=== PATIENT | female | born 1980 ===

== ENCOUNTER 2019-06-04 19:05 | Emergency (ER) | payer BC ==
[2019-06-04 20:25] LABS: ABS Lymphocytes 1.9 10^3/ul (1.0-4.8); ABS Monocytes 0.5 10^3/ul (0-0.8); ABS Neutrophils 4.8 10^3/ul (1.5-7.7); Eosinophil % 0.7 %; Hematocrit 36 % (35-47); Hemoglobin 12.1 g/dL (12.0-16.0); Lymphocyte % 26.4 %; Mean Corpuscular HGB Conc 33 g/dL (31-36); Mean Corpuscular Hemoglobin 29 pg (27-31); Mean Corpuscular Volume 86 fL (80-97); Mean Platelet Volume 7.5 fL (7.4-10.4); Nucleated Red Blood Cells % 0.1; Platelet Count 209 10^3/uL (150-450); Red Cell Distribution Width 14 % (10-15); White Blood Count 7.3 10^3/uL (3.5-10.8)
[2019-06-04 20:42] LABS: Albumin 4.4 g/dL (3.2-5.2); Albumin/Globulin Ratio 1.5 (1-3); Calcium 8.9 mg/dL (8.6-10.3); EGFR African American 105.2 (>60); Globulin 2.9 g/dL (2-4); Potassium 3.8 mmol/L (3.5-5.0); Total Bilirubin 0.3 mg/dL (0.2-1.0); Total Protein 7.3 g/dL (6.4-8.9)
[2019-06-04 22:39] VITALS: BP 100/60
--- NOTE | 2019-06-04 23:05 | ED ---
- HPI Summary HPI Summary: 38 year old F in 1st trimester of presenting to [facility] with a chief complaint of light vaginal bleeding onset today associated with stabbing umbilical pain. The bleeding is described as a spotting and hasn't worsened since onset. She additionally c/o fatigue. The pain is 3/10 in severity and intermittent. A0. PMHx: Sjgren's syndrome. - History of Current Complaint Chief Complaint: EDOBProblems Stated Complaint: POSS MISCARRIAGE PER PT Time Seen by Provider: 06/04/19 22:09 Hx Obtained From: Patient Chief Complaint: Concern for Demise, Vaginal Bleeding Onset/Duration: Started Hours Ago, Still Present Timing: Intermittent, Lasting Hours Severity: Mild Current Severity: Mild Pain Intensity: 3 Location of Pain: Other: - umbilical Character: Other: - stabbing Aggravating Factors: Nothing Alleviating Factors: Nothing Associated Signs and Symptoms: Positive: Vaginal Bleeding or Discharge, Other: - umbilical pain - Assessment Hx Now: Yes History of Ectopic : No Vaginal Bleeding Amount: Small - Allergies/Home Medications Allergies/Adverse Reactions: Allergies Allergy/AdvReac Type Severity Reaction Status Date / Time chicken derived Allergy Anaphylatic Verified 06/04/19 19:19 Shock mushroom Allergy Rash Verified 06/04/19 19:19 PMH/Surg Hx/FS Hx/Imm Hx Previously Healthy: Yes Endocrine/Hematology History: Reports: Other Endocrine/Hematological Disorders - Sjgren's syndrome Denies: Hx Diabetes Cardiovascular History: Denies: Hx Hypertension - Surgical History Surgical History: None Surgery Procedure, Year, and Place: none Infectious Disease History: No Infectious Disease History: Denies: Traveled Outside the [place] in Last 30 Days - Family History Known Family History: Negative: Hypertension, Diabetes - Social History Alcohol Use: None Hx Substance Use: No Substance Use Type: Reports: None Hx Tobacco Use: No Smoking Status (MU): Never Smoked Tobacco Review of Systems Positive: Other - fatigue Positive: Abdominal Pain - umbilical Positive: pain, other - vaginal spotting All Other Systems Reviewed And Are Negative: Yes Physical Exam - Summary Physical Exam Summary: Appearance: Well-appearing, Well-nourished, lying in bed comfortably Skin: Warm, dry, no obvious rash Eyes: sclera anicteric, no conjunctival pallor ENT: mucous membranes moist, pharynx appears normal Neck: Supple, nontender Respiratory: Clear to auscultation, no signs of respiratory distress Cardiovascular: Normal S1, S2. No murmurs. Normal distal pulses in tibial and radial bilaterally. Abdomen: Soft, nontender, normal active bowel sounds present. Bedside US confirms intrauterine . Musculoskeletal: Normal, Strength/ROM Intact Neurological: A&Ox3, awake and alert, mentation is normal, speech is fluent and appropriate Psychiatric: affect is normal, does not appear anxious or depressed - Physical Exam Triage Information Reviewed: Yes Vital Signs Reviewed: Yes Diagnostics - Vital Signs Vital Signs Temp Pulse Resp BP Pulse Ox 06/04/19 22:38 98.9 F 64 14 100/60 100 06/04/19 19:15 98.6 F 71 15 112/74 100 - Laboratory Lab Results: Lab Results 06/04/19 06/04/19 06/04/19 Range/Units 20:04 20:04 20:04 WBC 7.3 (3.5-10.8) 10^3/uL RBC 4.20 (3.70-4.87) 10^6 /uL Hgb 12.1 (12.0-16.0) g/dL Hct 36 (35-47) % MCV 86 (80-97) fL MCH 29 (27-31) pg MCHC 33 (31-36) g/dL RDW 14 (10-15) % Plt Count 209 (150-450) 10^3/uL MPV 7.5 (7.4-10.4) fL Neut % (Auto) 65.1 % Lymph % (Auto) 26.4 % [place] % (Auto) 7.3 % Eos % (Auto) 0.7 % Baso % (Auto) 0.5 % Absolute Neuts (auto) 4.8 (1.5-7.7) 10^3/ul Absolute Lymphs (auto) 1.9 (1.0-4.8) 10^3/ul Absolute Monos (auto) 0.5 (0-0.8) 10^3/ul Absolute Eos (auto) 0.0 (0-0.6) 10^3/ul Absolute Basos (auto) 0.0 (0-0.2) 10^3/ul Absolute Nucleated RBC 0.0 10^3/ul Nucleated RBC % 0.1 Sodium 135 (135-145) mmol/L Potassium 3.8 (3.5-5.0) mmol/L Chloride 105 (101-111) mmol/L Carbon Dioxide 24 (22-32) mmol/L Anion Gap 6 (2-11) mmol/L BUN 15 (6-24) mg/dL Creatinine 0.75 (0.51-0.95) mg/dL Est GFR ( Amer) 105.2 (>60) Est GFR (Non-Af Amer) 87.0 (>60) BUN/Creatinine Ratio 20.0 (8-20) Glucose 92 (70-100) mg/dL Calcium 8.9 (8.6-10.3) mg/dL Total Bilirubin 0.30 (0.2-1.0) mg/dL AST 16 (13-39) U/L ALT 13 (7-52) U/L Alkaline Phosphatase 52 (34-104) U/L Total Protein 7.3 (6.4-8.9) g/dL Albumin 4.4 (3.2-5.2) g/dL Globulin 2.9 (2-4) g/dL Albumin/Globulin Ratio 1.5 (1-3) Beta HCG, Quant 49838.00 mIU/mL Blood Type O Positive Antibody Screen Negative Result Diagrams: 06/04/19 20:04 06/04/19 20:04 Lab Statement: Any lab studies that have been ordered have been reviewed, and results considered in the medical decision making process. Re-Evaluation - Re-Evaluation First Eval Re-Evaluation Time: 22:30 Comment: We discussed results and plan for discharge. Course/Dx - Course Course Of Treatment: Pt is a 38 y/o F with cc of sudden onset vaginal spotting and umbilical pain this afternoon with concern for as she is in the first trimester with appt next week for first US. Bedside US confirms intrauterine . Blood work [place] [id number]. We discussed plan for discharge home with follow up with her OB/ [facility] (located in [place]). She understands and agrees with this plan. Dx is non-threatening first trimester vaginal bleeding. - Diagnoses Provider Diagnoses: First trimester bleeding Discharge ED - Sign-Out/Discharge Documenting (check all that apply): Patient Departure - Discharged Patient Received Moderate/Deep Sedation with Procedure: No - Discharge Plan Condition: Good Disposition: HOME Patient Education Materials: Non-Threatening First Trimester Vaginal Bleed (ED) Forms: *School Release Referrals: Miri Whittington PA [Primary Care Provider] - 3 Days Additional Instructions: Contact your OB on Thursday to let them know what happened over the weekend. On your screening US today I was able to confirm that the embryo is developing in the uterus, but I cannot see much detail beyond that. First trimester bleeding is very common, and if it remains light usually it is not serious. - Billing Disposition and Condition Condition: GOOD Disposition: Home - Attestation Statements Document Initiated by Senthil: Yes Documenting Scribe: Guido Mcgarry Provider For Whom Senthil is Documenting (Include Credential): Cb Freeman MD. Scribe Attestation: I, robert Snidered for Cb Freeman MD. on 06/06/19 at 0455. Scribe Documentation Reviewed: Yes Provider Attestation: The documentation as recorded by the scribeGuido accurately reflects the service I personally performed and the decisions made by me, Cb Freeman MD. Status of Scribe Document: Viewed
== END 2019-06-04 22:40 | disposition home or self-care (01) ==
LOC: ED 19:05 → MERGE 19:05 → ED 22:40
DX: O20.9 Hemorrhage in early pregnancy, unspecified (principal); Z3A.00 Weeks of gestation of pregnancy not specified
CPT/HCPCS: 36415; 80053; 84702; 85025; 86850; 86900; 86901; 99282